=== PATIENT | male | born 1975 | race African-American/Black ===

== ENCOUNTER 2019-06-19 06:38 | Day surgery (SDC) | payer MEDICARE ==
[~2019-06-19 06:38] MED LIST: CLINDAMYCIN 600 MG/D5W RTU 600 MG/50 ML RTUPB IV ONE; CLINDAMYCIN 600 MG/D5W RTU 600 MG/50 ML RTUPB IV PRN
[2019-06-19] MEDS ORDERED: FENTANYL CITRATE INJ/PF 100 MCG/2 ML AMPUL ONE ×2 (07:23→09:15)
[2019-06-19] MEDS ORDERED: MIDAZOLAM 2 MG/2 ML INJ ONE (07:23)
[2019-06-19] MEDS ORDERED: PROPOFOL INJ 200 MG/20 ML VIAL IV ONE (07:23)
[2019-06-19 07:37] LABS: HEMATOCRIT 40.9 % (37.9-51.0); MEAN CORPUSCULAR HEMOGLOBIN 31.3 pg (27.0-33.4); MEAN CORPUSCULAR HGB CONC 34.2 g/dL (32.0-36.0); MEAN CORPUSCULAR VOLUME 92 fl (80-97); PLATELET COUNT 248 10^3/uL (150-450); RED BLOOD COUNT 4.47 10^6/uL (4.35-5.55); RED CELL DISTRIBUTION WIDTH 14.2 % (11.5-14.0); WHITE BLOOD COUNT 6.2 10^3/uL (4.0-10.5)
[2019-06-19] MEDS ORDERED: BUPIVACAINE HCL 0.5 % INJ/PF 30 ML SDV ONE (07:46)
[2019-06-19] MEDS ORDERED: ALBUTEROL SULFATE 0.083% NEB 2.5 MG/3 ML AMPUL NEB ONE (07:53)
--- NOTE | 2019-06-19 07:54 | EKG REPORT ---
SEVERITY:- OTHERWISE NORMAL ECG - SINUS RHYTHM BORDERLINE LEFT AXIS DEVIATION : Confirmed by: Mane Neville MD 19-Jun-2019 07:54:13
[2019-06-19] MEDS ORDERED: METOCLOPRAMIDE HCL INJ/PF 10 MG/2 ML SDV ONE (07:55)
[2019-06-19] MEDS ORDERED: FAMOTIDINE INJ/PF 20 MG/2 ML SDV IV ONE (07:55)
[2019-06-19 08:00] LABS: ANION GAP 11 (5-19); BLOOD UREA NITROGEN 11 mg/dL (7-20); CALCIUM 9.2 mg/dL (8.4-10.2); CARBON DIOXIDE 24 mmol/L (22-30); CHLORIDE 105 mmol/L (98-107); GLUCOSE 121 mg/dL (75-110)
--- NOTE | 2019-06-19 08:17 | RADIOLOGY REPORT (SQ) ---
EXAM DESCRIPTION: CHEST SINGLE VIEW COMPLETED DATE/TIME: 06/19/2019 7:26 am REASON FOR STUDY: PRE-OP COMPARISON: None. NUMBER OF VIEWS: One view. TECHNIQUE: Single frontal radiographic view of the chest acquired. LIMITATIONS: Low lung volumes. FINDINGS: LUNGS AND PLEURA: No opacities, masses or pneumothorax. No pleural effusion. MEDIASTINUM AND HILAR STRUCTURES: No masses. Contour normal. HEART AND VASCULAR STRUCTURES: Heart normal in size. Normal vasculature. BONES: No acute findings. HARDWARE: None in the chest. OTHER: No other significant finding. IMPRESSION: NO SIGNIFICANT RADIOGRAPHIC FINDING IN THE CHEST. TECHNICAL DOCUMENTATION: JOB ID: [id number] [employer]- All Rights Reserved Reading location - IP/workstation name: [email or web address]
[2019-06-19] MEDS ORDERED: PROMETHAZINE HCL INJ 25 MG/1 ML VIAL IV PRN (08:35)
[2019-06-19] MEDS ORDERED: MEPERIDINE HCL/PF INJ 25 MG/1 ML DISP.SYRIN IV PRN (08:35)
[2019-06-19] MEDS ORDERED: DIPHENHYDRAMINE HCL 50 MG/ML VIAL IV PRN (08:35)
[2019-06-19] MEDS ORDERED: FENTANYL CITRATE INJ/PF 100 MCG/2 ML AMPUL IV PRN ×3 (08:35)
[2019-06-19] MEDS ORDERED: MORPHINE SULFATE 10 MG/ML INJ IV PRN ×2 (08:35→10:24)
[2019-06-19] MEDS ORDERED: OXYCODONE-ACETAMINOPHEN 5-325 MG TABLET PO PRN ×3 (08:35→10:24)
[2019-06-19] MEDS ORDERED: MINERAL OIL/PETROLATUM,WHITE OPH OINT 3.5 GM OP ONE (09:00)
[2019-06-19] MEDS ORDERED: ONDANSETRON HCL INJ/PF 4 MG/2 ML SDV IV PRN (10:24)
--- NOTE | 2019-06-19 10:25 | Discharge Summary ---
Discharge Summary (SDC) - Discharge Final Diagnosis: Left wrist scapholunate advanced collapse Date of Surgery: 06/19/19 Discharge Date: 06/19/19 Condition: Good Treatment or Instructions: Schedule Follow Up w/ Dr. Tae York @ [facility] to be seen in 10-14 days or as scheduled [place]: [place]: [place]: Ice and elevate Keep splint clean/dry/intact, do not remove. If your fingers become numb please unwrap the Chavo wrap but leave the splint in place, if the sensation does not return within 30 minutes please return to the emergency department. May begin finger range of motion attempting to make full fist. Stool softener of choice ORAL NARCOTIC MEDICATION: You have been given a prescription for pain control. This medication is a narcotic. It's best taken with food, as nausea can result if taken on an empty stomach. Don't operate machinery or drive within six hours of taking this medication. Do not combine this medicine with alcohol, or with any medication which can cause sedation (such as cold tablets or sleeping pills) unless you get permission from the physician. Narcotics tend to cause constipation. If possible, drink plenty of fluids and eat a diet high in fiber and fruits. Please be aware that prescription narcotics also have the potential for abuse. People become addicted to these medications because of the general sense of wellbeing that they induce. This feeling along with a significant reduction in tension, anxiety, and aggression provides a stimulating seductive quality to these drugs. Once your pain is under control, we encourage you to discard your unused narcotics. Prescriptions: Oxycodone HCl/Acetaminophen [Percocet 7.5-325 mg Tablet] 1 tab PO Q6 PRN #25 tab PRN Reason: Referrals: MACKENZIE BANERJEE MD [Primary Care Provider] - Discharge Diet: As Tolerated Respiratory Treatments at Home: Deep Breathing/Coughing, Incentive Spirometer Discharge Activity: No Lifting Over 10 Pounds, No Lifting/Push/Pulling Report the Following to Your Physician Immediately: Fever over 101 Degrees, Unusual Bleeding, Redness, Swelling, Warmth, Increased Soreness
--- NOTE | 2019-06-19 10:32 | Operative Report ---
Operative Report DATE OF SURGERY: 06/19/19 PREOPERATIVE DIAGNOSIS: Left wrist scapholunate advanced collapse POSTOPERATIVE DIAGNOSIS: Same OPERATION: 1. Left Wrist Scaphoid Excision. 2. Left Midcarpal (4-corner) arthrodesis with local autograft. 3. Left Posterior interosseous neurectomy SURGEON: GURWINDER KIRAN ANESTHESIA: GA COMPLICATIONS: None ESTIMATED BLOOD LOSS: Minimal PROCEDURE: Indication for above procedure: 43-year-old male who sustained a left wrist injury in the past. Ultimately developed posttraumatic arthritis. [facility]. We discussed treatment options including operative versus nonoperative intervention. Attempted conservative management without resolution of patient's symptoms. Risks and benefits were explained patient verbalized understanding consented for surgical procedure. Procedure In Detail: Patient was seen and evaluated in the preoperative holding area. The LEFT upper extremity was initialized and marked. Patient received clindamycin IV for bacterial prophylaxis. Patient was taken back to the operative room where transferred to the operative table and placed under general anesthesia. Once they were adequately anesthetized a nonsterile tourniquet was placed on the upper extremity. A surgical team debriefing was performed ensuring all instrumentation was available, the surgical procedure was discussed with possible concerns reviewed. The upper extremity was prepped with chlorhexidine and alcohol and draped in a sterile fashion. A timeout was done identifying correct patient, procedure and extremity everyone in attendance agree with this and verbalized no concerns. The extremity was exsanguinated the tourniquet was inflated to 250 mmHg. Longitudinal skin incision was made just ulnar to Dedra tubercle. Blunt dissection was performed. Radial sensory nerve was identified and retracted. The EPL tendon was identified and released. The fourth dorsal compartment was then elevated maintaining the underlying DIC/DRC continuity. The second dorsal compartment was then elevated as well. Along the floor of the fourth dorsal compartment the distal branch of the PIN was identified and 1 cm resected completing the PIN neurectomy. A Fernandez type capsulotomy was performed and elevated to expose the underlying carpus. There is no evidence of radiolunate degenerative changes but significant degenerative changes of the radial scaphoid articulation with complete cartilage loss. The scaphoid was then isolated releasing the intrinsic ligaments and removed in its entirety. On the back table the cartilage was removed and any cancellus bone grafted from the scaphoid to insert into the arthrodesis site in the future. Radial styloidectomy was performed distal to the RSC ligament. The proximal aspect of the capitate and hamate were debrided of cartilage down to cancellus bone. The cartilage along the distal aspect of the lunate and triquetrum. Was debrided down to cancellus bone using K wires joysticks the capitate-lunate articulation was reduced and held with a 0.062 K wire. C-arm fluoroscopy was obtained confirming acceptable alignment. At this point decision was made to proceed with arthrodesis utilizing the BME romulo. K wire was placed within the capitate and lunate C arm fluoroscopy was obtained confirming appropriate placement of the staple. This was then drilled and a 15 mm x 10 mm dorsal aspect of the carpus was recessed a staple inserted. Similarly K wires were placed once again and drilled dorsal aspect recessed and a 13 x 10 mm staple was inserted providing again continuous compression. Lastly 2 K wires were placed one within the hamate and one within the triquetrum and additional 13 mm x 10 mm staple was placed. At completion there was excellent interfragmentary compression of the 4 corner arthrodesis. C-arm fluoroscopy was obtained confirming reduction and appropriate placement of the BME wound was then copiously irrigated with normal saline. Remanent cancellus bone from the scaphoid was then impacted into any remaining small intricacies within the arthrodesis site. Patient had full range of motion of the wrist without crepitation. Capsulotomy was closed with interrupted 3-0 Ethibond suture. Wound was irrigated with normal saline once again. Tourniquet was deflated any peripheral bleeding was controlled with bipolar cautery until the wound was dry. Retinaculum was closed with interrupted 3-0 Vicryl suture. Subcutaneous tissues were closed with 3-0 Vicryl suture. Skin was closed with running subcuticular 4-0 Monocryl reinforced with Dermabond and Steri-Strips. Patient was placed in a sugar tong splint maintaining neutral position. Sponge counts, instrument counts, needle counts were correct. Patient was then awoken from anesthesia. Transferred from the operating room table to the operating room stretcher. There was no intraoperative complications patient tolerated procedure well stable to PACU. Postop plan: Patient will follow-up in the office 2 weeks we will obtain radiographs and transition to short arm cast.
[2019-06-19] MEDS ORDERED: LIDOCAINE 2% INJ (20 MG/ML) 20 ML MDV ONE (10:33)
[2019-06-19] MEDS ORDERED: LIDOCAINE 2%/EPINEPHRINE INJ 20 ML VIAL ONE (10:33)
[2019-06-19] MEDS ORDERED: ROPIVACAINE HCL 0.5% INJ/PF (5 MG/1 ML) 30 ML SDV ONE (10:33)
--- NOTE | 2019-06-19 11:03 | RADIOLOGY REPORT (SQ) ---
EXAM DESCRIPTION: WRIST LEFT 2 VIEWS; NO CHG FLUORO COMPLETED DATE/TIME: 06/19/2019 10:39 am REASON FOR STUDY: LEFT WRIST SCAPHOID EXCISION M19.232 SECONDARY OSTEOARTHRITIS, LEFT WRIST Z79.899 OTHER SENIOR LIVING (CURRENT) DRUG THERAPY COMPARISON: None. FLUOROSCOPY TIME: 35 seconds Spot images saved to PACS. TECHNIQUE: Intra-operative images acquired during surgical procedure to evaluate progress. NUMBER OF IMAGES: 6 LIMITATIONS: None. FINDINGS: Fluoroscopy was provided for intraoperative procedure. Please refer to the operative repo rt for further discussion. IMPRESSION: IMAGE(S) OBTAINED DURING PROCEDURE. COMMENT: Quality ID [id number]: Final reports for procedures using fluoroscopy that document radiation exp osure indices, or exposure time and number of fluorographic images (if radiation exposure indices are not available) Please consult full operative report of the attending physician for description of the procedure. TECHNICAL DOCUMENTATION: JOB ID: [id number] [employer]- All Rights Reserved Reading location - IP/workstation name: [email or web address]
--- NOTE | 2019-06-19 11:03 | RADIOLOGY REPORT (SQ) ---
EXAM DESCRIPTION: WRIST LEFT 2 VIEWS; NO CHG FLUORO COMPLETED DATE/TIME: 06/19/2019 10:39 am REASON FOR STUDY: LEFT WRIST SCAPHOID EXCISION M19.232 SECONDARY OSTEOARTHRITIS, LEFT WRIST Z79.899 OTHER GROUP HOME (CURRENT) DRUG THERAPY COMPARISON: None. FLUOROSCOPY TIME: 35 seconds Spot images saved to PACS. TECHNIQUE: Intra-operative images acquired during surgical procedure to evaluate progress. NUMBER OF IMAGES: 6 LIMITATIONS: None. FINDINGS: Fluoroscopy was provided for intraoperative procedure. Please refer to the operative repo rt for further discussion. IMPRESSION: IMAGE(S) OBTAINED DURING PROCEDURE. COMMENT: Quality ID [id number]: Final reports for procedures using fluoroscopy that document radiation exp osure indices, or exposure time and number of fluorographic images (if radiation exposure indices are not available) Please consult full operative report of the attending physician for description of the procedure. TECHNICAL DOCUMENTATION: JOB ID: [id number] [employer]- All Rights Reserved Reading location - IP/workstation name: [email or web address]
[2019-06-19] MEDS ORDERED: LIDOCAINE 2% INJ-PF (20 MG/ML) 2 ML AMPUL ONE (13:16)
[2019-06-19] MEDS ORDERED: SUCCINYLCHOLINE CHLORIDE INJ 200 MG/10 ML VIAL ONE (13:16)
[2019-06-19] MEDS ORDERED: ONDANSETRON HCL INJ/PF 4 MG/2 ML SDV ONE (13:16)
[2019-06-19] MEDS ORDERED: DEXAMETHASONE SOD PHOSPHATE INJ 4 MG/1 ML VIAL ONE (13:16)
[2019-06-19] MEDS ORDERED: NEOSTIGMINE METHYLSULFATE 10 MG/10 ML VIAL ONE (13:16)
[2019-06-19] MEDS ORDERED: GLYCOPYRROLATE 1 MG/5 ML VIAL ONE (13:16)
[2019-06-19] MEDS ORDERED: ROCURONIUM BROMIDE INJ 50 MG/5 ML VIAL IV ONE (13:16)
[2019-06-19 13:32] VITALS: BP 139/91
== END 2019-06-19 13:10 | disposition home or self-care (01) ==
LOC: OROUT 06:38
PROVIDERS: ATTEND Orthopaedic Surgery
DX: M19.232 Secondary osteoarthritis, left wrist (principal); M25.532 Pain in left wrist; I10 Essential (primary) hypertension; E11.9 Type 2 diabetes mellitus without complications; J45.909 Unspecified asthma, uncomplicated; Z91.040 Latex allergy status; Z79.51 Long term (current) use of inhaled steroids; Z79.899 Other long term (current) drug therapy; Z79.84 Long term (current) use of oral hypoglycemic drugs
CPT/HCPCS: 36415; 85027; 80048; 71045; 73100; 93005; 93010; 01830; 64772; 25825; 25210; C1713 ×3; C1776; J2795; J2250; J3490 ×6; J1100; J3010; J2765; J2710; J0330; J2405; J2704; S0028; A9270